=== PATIENT | male | born 1965 | race Caucasian/White ===

== ENCOUNTER 2018-10-22 08:17 | Day surgery (SDC) | payer MEDICARE ==
[~2018-10-22] VITALS: Ht 177.8 cm; Wt 120.8 kg
[~2018-10-22 08:17] MED LIST: ASPI81CH PO; ATOR10 PO; ATOR40TA PO; Aspirin EC81 MG PO; BUPR150ER PO; CEPH500 PO; Citalopram HBr10 MG PO; FENO145 PO; FLUV50 PO; FLUV80CR PO; Fluvoxamine Ma100 MG PO; Glucophage1000 MG PO; LAMO100 PO; LEVSOD50 PO; LISI5 PO; MECL25 PO; METF500 PO; METHYLPHENIDATE 5 MG; METPHE5 PO; PIOG15 PO; SITA100T2 PO; SULTRIDS PO; Zolpidem Tartra10 MG
== END 2018-10-22 10:36 | disposition home or self-care (01) ==
LOC: ORSCSDS 08:17
PROVIDERS: Internal Medicine Gastroenterology
PROC: 0DBN8ZX Excision of Sigmoid Colon, Via Natural or Artificial Opening Endoscopic, Diagnostic (ICD-10-PCS; principal; 2018-10-22 09:45)
PROC: 0DBP8ZX Excision of Rectum, Via Natural or Artificial Opening Endoscopic, Diagnostic (ICD-10-PCS; principal; 2018-10-22 09:45)
DX: Z12.11 Encounter for screening for malignant neoplasm of colon (principal); D12.8 Benign neoplasm of rectum; K63.5 Polyp of colon; K64.8 Other hemorrhoids; E11.9 Type 2 diabetes mellitus without complications; G47.33 Obstructive sleep apnea (adult) (pediatric); E66.01 Morbid (severe) obesity due to excess calories; Z68.38 Body mass index [BMI] 38.0-38.9, adult; Z79.4 Long term (current) use of insulin; Z79.899 Other long term (current) drug therapy
CPT/HCPCS: 82947; 88305; J7120

== ENCOUNTER → 2024-12-09 | Outpatient (CLI) | payer OTHER ==
[2024-12-10 22:26] LABS: Creatinine, Urine Random 77.4 mg/dL (27.00-270.00)
[2024-12-10 22:29] LABS: Microalb/Creat Ratio UR, Rand 12.235 mg/g (0.000-30.000); Microalbumin, Random Urine 9.47 mg/L (0.000-20.000)
== END ==
LOC: LAB SHORT 09:28 → LAB 09:28
PROVIDERS: Physician Assistant
DX: E11.65 Type 2 diabetes mellitus with hyperglycemia (principal); Z79.4 Long term (current) use of insulin
CPT/HCPCS: 82043; 82570